=== PATIENT | female | born 1985 | race Caucasian/White ===

== ENCOUNTER 2018-08-21 09:22 | Emergency (ER) | payer BC ==
[~2018-08-21] VITALS: Ht 170.2 cm; Wt 70.3 kg
[2018-08-21 09:33] VITALS: BP 98/58; Ht 170.2 cm; Wt 70.3 kg
== END 2018-08-21 10:03 | disposition home or self-care (01) ==
LOC: ED 09:22
DX: S93.504A Unspecified sprain of right lesser toe(s), initial encounter (principal); Z88.1 Allergy status to other antibiotic agents; W22.8XXA Striking against or struck by other objects, initial encounter; Y93.01 Activity, walking, marching and hiking; Y92.89 Other specified places as the place of occurrence of the external cause; Y99.8 Other external cause status
CPT/HCPCS: Q0092